=== PATIENT | female | born 1970 | race Caucasian/White ===

== ENCOUNTER 2020-08-07 09:40 | Day surgery (SDC) | payer MEDICAID, OTHER ==
[~2020-08-07] VITALS: Ht 162.6 cm; Wt 91.0 kg
[2020-08-07] MEDS ORDERED: ONDANSETRON HCL 4MG/2ML INJ IV STA (10:03)
[2020-08-07] MEDS ORDERED: KETOROLAC 30MG/ML VIAL IV STA (10:03)
[2020-08-07] MEDS ORDERED: FAMOTIDINE 20MG/2ML VIAL IV STA (10:03)
[2020-08-07] MEDS ORDERED: SODIUM CHLORIDE 0.9% 1,000 ML IV ONE ×2 (10:15→14:15)
[2020-08-07 10:50] LABS: BASOPHILS % 0.5 % (0.0-2.0); EOSINOPHILS % 0.8 % (0.0-5.0); HEMATOCRIT. 41.4 % (36.0-48.0); HEMOGLOBIN. 13.9 g/dL (12.0-16.0); LYMPHOCYTES % 18.5 % (20.0-50.0); MEAN CORPUSCULAR VOLUME 83.4 fL (81.0-99.0); MEAN PLATELET VOLUME 9.2 fl (7.4-10.4); MONOCYTES % 5.1 % (2.0-8.0); NEUTROPHILS % 75.1 % (40.0-76.0); PLATELET 382 x1000/uL (130-400); RED BLOOD CELL COUNT 4.96 mill/uL (4.2-5.4); RED CELL DISTRIBUTION WIDTH 13.7 % (11.6-14.6)
[2020-08-07 10:58] LABS: CHLORIDE 104 mEq/L (98-107)
[2020-08-07 11:01] LABS: PROTHROMBIN TIME 10.1 sec (9.6-11.0)
[2020-08-07 11:02] LABS: ETHANOL BLOOD < 10 mg/dL
[2020-08-07 11:06] LABS: CLARITY URINE CLEAR (CLEAR); COLOR URINE YELLOW (YELLOW); KETONES URINE NEGATIVE (NEGATIVE); LEUKOCYTE ESTERASE URINE NEGATIVE (NEGATIVE); NITRITE URINE NEGATIVE (NEGATIVE); OCCULT BLOOD URINE TRACE (NEGATIVE); PROTEIN URINE NEGATIVE (NEGATIVE); SPECIFIC GRAVITY URINE 1.008 (1.005-1.030); UROBILINOGEN URINE 0.2 E.U./dL (0.2-1.0)
[2020-08-07] MEDS ORDERED: PIPERACILLIN/TAZ 3.375G PREMIX 50 ML IV ONE (11:15)
[2020-08-07 11:33] LABS: *AMPHETAMINES SCREEN URINE NEGATIVE (NEGATIVE); *BARBITURATES SCREEN URINE NEGATIVE (NEGATIVE); *BENZODIAZEPINES SCREEN URINE NEGATIVE (NEGATIVE); *COCAINE SCREEN URINE NEGATIVE (NEGATIVE)
[2020-08-07 11:34] LABS: CANNABINOID URINE SCREEN NEGATIVE (NEGATIVE); METHADONE URINE SCREEN NEGATIVE (NEGATIVE); OPIATES URINE SCREEN NEGATIVE (NEGATIVE); PHENCYCLIDINE URINE SCREEN NEGATIVE (NEGATIVE)
[2020-08-07] MEDS ORDERED: SKIN ADHESIVE 0.7 GM EA TOP ONE (12:35)
[2020-08-07] MEDS ORDERED: BUPIVACAINE HCL 0.5% (5MG/ML) 50ML ONE (12:36)
[2020-08-07] MEDS ORDERED: ROCURONIUM BROMIDE 10MG/ML VIAL 5ML IV ONE (13:23)
[2020-08-07] MEDS ORDERED: NEOSTIGMINE METHYLSULFATE 1MG/ML 10 ML VIAL ONE (13:23)
[2020-08-07] MEDS ORDERED: FENTANYL CITRATE/PF 50MCG/ML 2ML VIAL ONE ×2 (13:23→13:42)
[2020-08-07] MEDS ORDERED: ONDANSETRON HCL 4MG/2ML INJ ONE (13:24)
[2020-08-07] MEDS ORDERED: GLYCOPYRROLATE 0.2 MG/ML 2ML VIAL ONE (13:24)
[2020-08-07] MEDS ORDERED: SODIUM CHLORIDE 0.9% 10ML VIAL ONE (13:24)
[2020-08-07] MEDS ORDERED: PROPOFOL 200MG/20ML VIAL IV ONE (13:24)
[2020-08-07] MEDS ORDERED: SUCCINYLCHOLINE CHLORIDE 200MG/10ML IV ONE (13:24)
[2020-08-07] MEDS ORDERED: METOCLOPRAMIDE HCL 10MG/2ML VIAL ONE (13:24)
[2020-08-07] MEDS ORDERED: MIDAZOLAM HCL 2 MG/2 ML VIAL ONE (13:24)
[2020-08-07 13:38] LABS: HCG SCREEN NEGATIVE
[2020-08-07] MEDS ORDERED: MEPERIDINE HCL/PF 25MG/ML CPJ IV PRN ×2 (14:15)
[2020-08-07] MEDS ORDERED: ONDANSETRON HCL 4MG/2ML INJ IV PRN (14:15)
[2020-08-07] MEDS ORDERED: HYDROMORPHONE HCL/PF 2MG/ML CPJ IV PRN (14:15)
[2020-08-07] MEDS ORDERED: CLONIDINE 0.1MG TABLET PO PRN (14:15)
[2020-08-07] MEDS ORDERED: MORPHINE SULFATE 2 MG/ML CPJ (NOT FOR IM USE) IV PRN (14:15)
[2020-08-07] MEDS ORDERED: POTASSIUM CHLORIDE 20MEQ TABLET SR PO NR (14:15)
[2020-08-07 14:59] VITALS: BP 152/77
== END 2020-08-07 17:30 | disposition home or self-care (01) ==
LOC: ER 09:53 → 6EST 11:18 → UNDOADMIN 11:18 → EDBEDREQTM 11:31 → EDBEDREQ 11:31 → ENRESERV 13:12 → OR 14:15
PROVIDERS: ATTEND Surgery
DX: K35.890 Other acute appendicitis without perforation or gangrene (principal); J98.11 Atelectasis; I10 Essential (primary) hypertension; E66.9 Obesity, unspecified; Z79.899 Other long term (current) drug therapy; Z98.890 Other specified postprocedural states
CPT/HCPCS: 36415; 44970; 71045; 74176; 80053; 80305; 80320; 81003; 83690; 84484; 84703; 85025; 85610; 87426; 88304; 93005; 96361; 96365; 96375; 99285; J0330; J1885; J2175; J2250; J2405; J2543; J2704; J2710; J2765; J3010; J3490; J7030; 96374; G0480

== ENCOUNTER 2020-09-03 00:28 | Emergency (ER) | payer MEDICAID ==
[~2020-09-03] VITALS: Ht 162.6 cm; Wt 95.0 kg
[2020-09-03 00:30] VITALS: BP 179/80
[2020-09-03] MEDS ORDERED: DIATR MEGLU/DIATRIZOATE SOLN 30ML ONE (01:27)
[2020-09-03 01:33] LABS: CLARITY URINE CLEAR (CLEAR); COLOR URINE YELLOW (YELLOW); KETONES URINE NEGATIVE (NEGATIVE); LEUKOCYTE ESTERASE URINE NEGATIVE (NEGATIVE); NITRITE URINE NEGATIVE (NEGATIVE); OCCULT BLOOD URINE TRACE (NEGATIVE); PH URINE 6.5 (4.5-8.0); PROTEIN URINE NEGATIVE (NEGATIVE); SPECIFIC GRAVITY URINE 1.004 (1.005-1.030); UROBILINOGEN URINE 0.2 E.U./dL (0.2-1.0)
[2020-09-03] MEDS ORDERED: ACETAMINOPHEN 325MG TABLET PO ONE (01:45)
== END 2020-09-03 02:45 | disposition home or self-care (01) ==
LOC: ER 00:28
DX: M54.5 Low back pain (principal); I10 Essential (primary) hypertension; Z90.49 Acquired absence of other specified parts of digestive tract
CPT/HCPCS: 74176; 81003; 87086; 99284; Q9963